=== PATIENT | male | born 1950 | race Caucasian/White ===

== ENCOUNTER 2023-02-07 12:37 | Inpatient (IN) | payer OTHER, SELFPAY ==
[2023-02-07] VITALS (15 sets, daily range): BP systolic 84–125; BP diastolic 54–88; PULSE 56–79; RESP 3–25; TEMP 36–36.9; O2SAT 95–100; BMI 32.0
--- NOTE | 2023-02-07 12:40 | ED.VIS.CHEST ---
HPI History of Present Illness Chief Complaint: Chest Pain Informant: patient and EMS Onset/Context/Timing Onset: Today Activity at onset: sudden Timing: Continuous Quality: Positive for Dull Location: Substernal Relieved By: Nothing Associated Symptoms: Positive for Nausea and Lightheadedness; Negative for Diaphoresis or Palpitations Narrative Narrative: Patient presents with chest pain, shortness of breath, and nausea that began this morning when he woke up. Patient states that he felt short of breath when he got out of bed. Patient admits to some mild pain in his chest. Patient took 1 baby aspirin at home. Patient states that he tried to walk to his living room and became very short of breath. At that point, his called EMS. On EMS arrival they did an EKG which showed ventricular tachycardia. Patient converted to a sinus rhythm spontaneously. EMS did another EKG which showed ST elevation in leads III and aVF with reciprocal changes in leads V1 through V4. Because of this, prehospital STEMI alert was called. CVD Risk Factors: Positive for - (History of coronary artery disease) PE Risk Factors: Negative for Recent Immobilization or Prior DVT or PE PFSH PFSH Medical History (Updated 02/07/23 @ 14:38 by Suyapa Ryan) Chest pain Coronary artery disease Cystic fibrosis Former smoker Myocardial infarct Allergy/AdvReac Type Severity Reaction Status Date / Time oxycodone Allergy HALLUCINATI Verified 02/07/23 12:39 ONS Surgical History (Updated 02/07/23 @ 14:38 by Suyapa Ryan) History of cholecystectomy History of coronary artery bypass graft Hx of heart artery stent Social History Smoking Status: Former smoker ROS ROS ED Constitutional Constitutional ED: Denies chills or fever(s) Cardiovascular Cardiovascular: Reports as per HPI and chest pain Respiratory/Chest Respiratory/Chest: Reports dyspnea Gastrointestinal Gastrointestinal: Reports nausea and vomiting Musculoskeletal Musculoskeletal: Denies back pain Neurologic Neurologic: Denies headache(s) EXAM Physical Exam Const Vital Signs: 02/07/23 12:51 02/07/23 12:39 Temperature 96.8 F L Temperature Source Temporal Blood Pressure 113/88 H Positive well nourished and well developed General Appearance ED: well developed and NAD HEENT Reports moist mucous membranes Neck supple and no JVD Resp normal respiratory effort and clear to auscultation bilaterally Cardio regular rate and regular rhythm GI soft to palpation, non-tender and non-distended Neuro oriented x3, CN's II-XII intact bilaterally and no sensory deficits noted Sensorium / Orientation: awake and alert Psych mental status grossly normal Heart Score History: Highly Suspicious ECG: Significant ST-Depression Age: >/= 65 years Risk Factors: >/= 3 Risk Factors or History of CAD Score: 8 MDM MDM MDM Narrative Medical decision making narrative: Prehospital STEMI alert was called. Patient was given 3 more baby aspirin prior to arrival. Patient was also given 180 mg of Brilinta and 4000 units of heparin by EMS. Patient was seen in the ambulance bay by myself as well as territory account executive, Dr. Hopson. He will take the patient directly to the Instrumentation Manager. Patient understands and is agreeable with the plan. All questions were answered. Lab Data Labs: Laboratory Results - last 24 hr 02/07/23 13:45 WBC 10.5 RBC 4.11 L Hgb 13.1 Hct 40.2 MCV 97.8 H MCH 31.9 MCHC 32.6 RDW Std Deviation 47.1 H RDW Coeff of Lisbet 13.1 Plt Count 228 MPV 9.7 Immature Gran % (Auto) 0.300 Neut % (Auto) 69.1 Lymph % (Auto) 20.1 Schuyler % (Auto) 7.9 Eos % (Auto) 2.2 Baso % (Auto) 0.4 Absolute Neuts (auto) 7.2 Absolute Lymphs (auto) 2.10 Nucleated RBC % 0 PT 15.2 H INR 1.2 APTT 249.5 H* Sodium 137 Potassium 4.0 Chloride 108 H Carbon Dioxide 25.0 Anion Gap 4 L BUN 17 Creatinine 0.94 Estim Creat Clear Calc 75.50 Est GFR (MDRD) Af Amer 102 Est GFR (MDRD) Non-Af 84 BUN/Creatinine Ratio 18.0 Glucose 114 H Calcium 8.2 L Troponin I High Sens 111 H B-Natriuretic Peptide 158.3 H EKG Initial EKG: Attestation: I personally reviewed and interpreted this EKG as follows: Interpretation: Sinus Rhythm and S-T Elevation Comments: Prehospital EKG was reviewed. On my independent interpretation, it shows normal sinus rhythm. There is ST elevation in leads III and aVF. There are reciprocal changes in leads V1 through V4. Management Discussion w/another healthcare provider: Hospitalist (Dr. Lemon) and Door Cutter (Dr. Hopson) Critical Care Time Critical Care Time: Yes Critical care time (excluding procedures): 30-74 minutes (20), Including time spent:, Discussing w/Patient &/or Family/Phlebotomist Medical Lab Assistant, Discussing w/Consultants, Arranging Admission or Transfer and Performing Direct Patient Care at Bedside Discharge Plan Dx/Rx/DC Orders Clinical Impression: Coronary artery disease, Acute ST elevation myocardial infarction (STEMI) Disposition Disposition: Acute Care Hospital [facility] Discharge Date/Time: 02/07/23 12:51
--- NOTE | 2023-02-07 12:43 | ED.RN ---
PT ARRIVED VIA [facility], STEMI WAS CALLED BRIDGE GAME DIRECTOR AT 1225. UPON EMS ARRIVAL, DR LEE AND DR SANDERS EVALUATED PT IN HALLWAY AND TAKEN STRAIGHT TO FURNACE COMBINATION ANALYST. 4,000 HEPARIN, 180 BRILINTA, AND 243 ASA GIVEN BY EMS BRIDGE GAME DIRECTOR. FOR EMS, PT WAS IN VTACH WITH A PULSE AND CONVERTED ON OWN. PT WAS NEVER TRIAGED OR PLACED IN ER ROOM. 18g IV IN LAC PLACED BY EMS.
--- NOTE | 2023-02-07 13:56 | PCM.CONS.C ---
Assessment & Plan Assessment/Plan (1) Acute ST elevation myocardial infarction (STEMI): QUALIFIERS: Involved coronary artery: unspecified coronary artery Qualified Code(s): I21.3 - ST elevation (STEMI) myocardial infarction of unspecified site PLAN: Treated with drug-eluting stent to the SVG to RCA. This is large vessel with an ectatic segment proximal to the stented segment. Due to the ectasia there appears to be some nonlinear flow in the segment which does increase the risk of stent thrombosis. We will keep the patient on aspirin, Brilinta, statin, beta-alberto and MOON inhibitor. Check 2D echo to evaluate LV function. Patient is being admitted to the CCU for further management of his ST elevation AZ. Patient did have V. tach in the setting of this AZ. We will monitor him closely on telemetry. Continue beta-alberto. (2) Coronary artery disease: QUALIFIERS: Coronary Disease-Associated Artery/Lesion type: unspecified vessel or lesion type [place] vs. transplanted heart: [place] heart Associated angina: without angina Qualified Code(s): I25.10 - Atherosclerotic heart disease of [place] coronary artery without angina pectoris HPI Consult Data Date of Consult: 02/07/23 HPI Narrative Reason for Consultation: STEMI HPI Narrative: JESSICA DOLL, is a 72 M who presents with sudden onset of shortness of breath and nausea. He asked his to call 911 and when the paramedics arrived he was in V. tach. He had not passed out and by the time they were ready to shock him he spontaneously converted to sinus rhythm. A twelve-lead EKG done at that time revealed inferior ST elevation AZ and a STEMI alert was called. Patient has history of AZ in 2005 in [facility] and had stent at that time. He had coronary angiography in 2017 and underwent three-vessel CABG which are GODFREY to LAD, SVG to OM, SVG to RCA. He underwent emergent coronary angiography today which revealed 90% stenosis in the large ectatic SVG to RCA. This was treated with drug-eluting stent placement. Patient is doing well at the end of the procedure. He is being admitted to the CCU for further management of his ST elevation AZ. [facility] Medical History (Updated 02/07/23 @ 14:[address] Muna Hopson MD) Coronary artery disease Allergy/AdvReac Type Severity Reaction Status Date / Time oxycodone Allergy HALLUCINATI Verified 02/07/23 12:39 ONS Surgical History History of coronary artery bypass graft Hx of heart artery stent Social History Smoking Status: Unknown if ever smoked Physical Exam Const alert and oriented x3 HEENT normocephalic Eyes no scleral icterus Resp normal respiratory effort Risk Stratification Risk Stratification Applicable: No Charges/Coding Visit Charges Inpatient E&M: 33588 Init Hosp L1 Objective Data Vital Signs: Vital Signs Temp BP 96.8 F L 113/88 H 02/07/23 12:39 02/07/23 12:51 Cardiology Labs/Tests Rhythm: EKG: ECHO: Stress Test: Cardiac Cath: PCI: CT Surgery: Holter monitor: EPS: PPM: CXR: Chest CT Scan:
--- NOTE | 2023-02-07 14:01 | ECHOCS_ITS ---
Reason For Study: S/P MT Procedure This was a 2D Doppler, Color Flow transthoracic echocardiogram. The study was technically difficult. Exam performed S/P heart catherization, PT in supine position for exam. Contrast injection was performed. Exam performed portable in ICU/CCU. Left Ventricle Normal LV size. Mild concentric left ventricular hypertrophy. Left ventricular systolic function is normal. The estimated ejection fraction is 53 %. Stage 1 diastolic dysfunction. Mid-Inferior: Hypokinetic. Right Ventricle Normal RV size. Normal systolic function. Mitral Valve Mild (1+) eccentric mitral valve insufficiency. Pulmonic Valve Normal pulmonic valve. Great Vessels Normal aortic root. Pericardium/Pleural No pericardial effusion. Medication Diluted definity 3.0ml given slow IV push to enhance endocardial definition. MMode/2D Measurements & Calculations LVIDd: 5.6 cm IVSd: 1.2 cm Ao root diam: 3.1 cm LVIDs: 4.4 cm LVPWd: 1.2 cm RVDd: 2.8 cm FS: 22.5 % LAV(MOD-bp): 100.7 ml LVAd ap4: 31.6 cm2 LVAd ap2: 23.3 cm2 LAV(MOD-bp) Indexed: 45.1 ml/m2 LVLd ap4: 8.1 cm LVLd ap2: 7.9 cm LAV(MOD-sp2): 87.6 ml EDV(MOD-sp4): 101.9 ml EDV(MOD-sp2): 55.1 ml LAV(MOD-sp4): 108.1 ml EDV(sp4-el): 105.2 ml EDV(sp2-el): 57.9 ml LVAs ap4: 20.9 cm2 LVAs ap2: 15.0 cm2 LVLs ap4: 7.2 cm LVLs ap2: 6.9 cm ESV(MOD-sp4): 50.1 ml ESV(MOD-sp2): 27.0 ml ESV(sp4-el): 51.4 ml ESV(sp2-el): 27.7 ml EF(MOD-sp4): 50.8 % EF(MOD-sp2): 50.9 % EF(sp4-el): 51.2 % SV(MOD-sp4): 51.8 ml SV(MOD-sp2): 28.1 ml SV(sp4-el): 53.9 ml LA A4 area: 28.4 cm2 LA dimension(2D): 5.6 cm RA A4 area: 14.9 cm2 TAPSE: 0.98 cm Time Measurements MV dec time: 0.30 sec Doppler Measurements & Calculations MV E max ang: 46.2 cm/sec Lat Peak E' Ang: 7.0 cm/sec Med Peak E' Ang: 4.2 cm/sec MV A max ang: 66.9 cm/sec E/E' lat: 6.6 E/E' med: 11.0 MV E/A: 0.69 MV V2 max: 70.0 cm/sec MV dec slope: 154.7 cm/sec2 Ao V2 max: 83.7 cm/sec MV max P.0 mmHg Ao max P.8 mmHg MV V2 mean: 43.8 cm/sec Ao V2 mean: 53.1 cm/sec MV mean P.85 mmHg Ao mean P.4 mmHg MV V2 VTI: 29.4 cm Ao V2 VTI: 17.3 cm AV (velocity ratio): 0.93 LV V1 max: 73.6 cm/sec PA V2 max: 67.2 cm/sec LV V1 max P.2 mmHg PA V2 mean: 45.9 cm/sec LV V1 mean P.3 mmHg LV V1 mean: 52.5 cm/sec LV V1 VTI: 16.2 cm ECHO/Echo Complete W/ Contrast Interpretation Summary Normal LV size. Mild concentric left ventricular hypertrophy. Left ventricular systolic function is normal. The estimated ejection fraction is 53 %. Stage 1 diastolic dysfunction. Mid-Inferior: Hypokinetic Ordering Physician: Daria Lemon Referring Physician: EVERETTE PCP Performed By: Elba Marcum RDCS, RVT
--- NOTE | 2023-02-07 14:01 | PCM.HP.STD ---
HPI - General General Date of Admission: 02/07/23 Date of Service: 02/07/23 Chief Complaint: Shortness of breath and chest pain HPI Narrative JESSICA DOLL, is a 72 M with a history of coronary artery disease with stenting and CABG in 2017 who presented to [facility] 02/07/2023 as a STEMI alert. Patient had sudden onset of shortness of breath and nausea and called EMS. Patient initially found to be in V. tach with pulse and when he was moved so he could be cardioverted he converted to normal sinus rhythm and EKG showed inferior STEMI. Patient was seen in ED by ED physician and cartridge assembling machine adjuster and taken straight to Auto Washer. He was found to have right vein graft with 90% blockage and this was stented. Discussed with cartridge assembling machine adjuster and it was recommended patient continue aspirin, Brilinta, statin and to obtain echocardiogram. Patient seen at bedside after emergent left heart cath. Patient reports he is now feeling well overall, has a little bit of tingling in his toes but no chest pain, shortness of breath, nausea. Denies any other physical complaints. Reports leading up to this event he had a nosebleed 4 to 5 days ago but has had no other recent medical problems [facility] Medical History (Updated 02/07/23 @ 14:38 by Suyapa Ryan) Chest pain Coronary artery disease Cystic fibrosis Former smoker Myocardial infarct Allergy/AdvReac Type Severity Reaction Status Date / Time oxycodone Allergy HALLUCINATI Verified 02/07/23 12:39 ONS Surgical History (Updated 02/07/23 @ 14:38 by Suyapa Ryan) History of cholecystectomy History of coronary artery bypass graft Hx of heart artery stent Social History Smoking Status: Former smoker ROS ROS Narrative General: Denies fever/chills HENT: Denies headache, denies stuffy nose, denies sore throat EYES: Denies changes in vision Resp: Denies cough, + shortness of breath resolved Cardiac: Denies chest pain GI: Denies abdominal pain, denies changes in bowel, did have nausea prior to arrival : Denies changes in urination Extremity: Denies swelling MSK: Denies weakness Neuro: Little bit of tingling in toes Heme: Denies any bleeding or bruising Skin: Denies rashes Psychiatric: No complaints voiced Vital Signs Vital Signs Vital Signs: 02/07/23 12:51 02/07/23 12:39 Temperature 96.8 F L Temperature Source Temporal Blood Pressure 113/88 H Physical Exam Narrative General: Alert, oriented, no apparent distress HEENT: Atraumatic, normocephalic Eyes: Anicteric, normal conjunctiva, extraocular movements grossly intact Neck: Supple Respiratory: Clear to auscultation bilaterally, normal respiratory effort Cardiovascular: Regular rate and rhythm GI: Soft, nontender, nondistended Extremities: No edema Musculoskeletal: Moving all extremities Neuro: No overt focal neurological deficits Skin: No rashes appreciated Psych: Cooperative Results Lab / Micro Data 02/07/23 13:45 02/07/23 13:45 Assessment & Plan Assessment/Plan (1) Acute ST elevation myocardial infarction (STEMI): QUALIFIERS: Involved coronary artery: unspecified coronary artery Qualified Code(s): I21.3 - ST elevation (STEMI) myocardial infarction of unspecified site (2) Coronary artery disease: QUALIFIERS: Associated angina: without angina Coronary Disease-Associated Artery/Lesion type: unspecified vessel or lesion type [place] vs. transplanted heart: [place] heart Qualified Code(s): I25.10 - Atherosclerotic heart disease of [place] coronary artery without angina pectoris PLAN: Plan #STEMI -Brought in emergently taken to Auto Washer, found to have right vein graft with 90% blockage and this was stented -Aspirin, Brilinta, MOON, beta-alberto, statin -Cardiology following -Echocardiogram ordered -Continue home spironolactone #History of coronary artery disease -CABG in 2017 and stenting prior to that -Aspirin, Brilinta, statin, MOON, beta-alberto as above #VT w/ pulse -In setting of STEMI -Resolved -Monitor in ICU on tele -Echo ordered #DVT ppx: Lovenox subcu Daria Lemon MD Time spent in the patient's overall evaluation,decision-making process, review of diagnostic data, adjustment of management, discussion with other providers, nursing nursing and ancillary staff involved in patient's care documentation, 56 minutes Charges/Coding Visit Charges Inpatient E&M: 95373 Init Hosp L2
--- NOTE | 2023-02-07 14:10 | EKG12_ITS ---
Test Reason : post cath stemi Blood Pressure : / mmHG Vent. Rate : 066 BPM Atrial Rate : 066 BPM P-R Int : 174 ms QRS Dur : 108 ms QT Int : 408 ms P-R-T Axes : 022 -01 -04 degrees QTc Int : 427 ms Normal sinus rhythm Possible Inferior infarct , age undetermined Abnormal ECG No previous ECGs available Confirmed by RAYO NEWMAN, CORINA ([id number]), photograph editor ROBINSON ALMAZAN ([id number]) on 02/08/2023 1:43:16 PM Referred By: Muna Hopson Confirmed By:CORINA CADE MD
[2023-02-07 14:27] LABS: Absolute Neutrophil Count 7.2 X10^3/uL (2.0-7.7); Basophil# 0.04 X10^3/uL; Basophil% 0.4 % (0-1); Eosinophil# 0.23 X10^3/uL; Eosinophils% 2.2 % (0-5); Hematocrit 40.2 % (40-54); Hemoglobin 13.1 g/dL (13.0-16.5); Lymphocyte % 20.1 % (19-41); Mean Corp Hgb Conc 32.6 g/dL (32-36); Mean Corpuscular Hgb 31.9 pg (27.0-32.0); Mean Corpuscular Volume 97.8 fL (80-94); Mean Platelet Vol. 9.7 fl (6.2-12.0); Monocyte# 0.83 X10^3/uL; Monocyte% 7.9 % (0-10); NRBC Flagged by Analyzer 0 % (0-5); Neutrophil # 7.24 X10^3/uL (2.7-7.7); Neutrophil % 69.1 % (47-70); Platelet Count 228 K/mm3 (150-450); RBC Distribution Width CV 13.1 % (11.6-14.6); RBC Distribution Width SD 47.1 fl (35.1-43.9); Red Blood Count 4.11 M/mm3 (4.6-6.2); White Blood Count 10.5 K/mm3 (4.4-11.0)
[2023-02-07 14:40] LABS: International Normalized Ratio 1.2; Prothrombin Time (Protime)PT. 15.2 SECONDS (11.7-14.9)
[2023-02-07 14:43] LABS: Anion Gap 4 (5-15); BUN 17 mg/dL (7-18); Calcium,Total 8.2 mg/dL (8.5-10.1); Chloride 108 mmol/L (98-107); Creatinine, Serum 0.94 mg/dL (0.70-1.30); EST Glomerular Filtration Rate 84 mL/min (>60); Est Glom Filt Rate - Afr Amer 102 mL/min (>60); Glucose 114 mg/dL (74-106); Sodium Level 137 mmol/L (136-145); Troponin-I HS 111 pg/mL (3.0-78.0)
[2023-02-07] MEDS: 0.9% Normal Saline (1000mL) 1,000 ML 150 ML IV (14:45)
[2023-02-07 14:46] LABS: BNP,B-Type NATRIURETIC PEPTIDE 158.3 pg/mL (0-100)
[2023-02-07 15:03] LABS: Partial Thromboplast Time 249.5 Seconds (24.1-36.2)
--- NOTE | 2023-02-07 15:37 | CHAPLAIN ---
Type of Pastoral Visit ___ Initial Visit ___ Follow-up Visit ___ On-call Visit ___ General Patient Visit ___ Spiritual Assessment ___ Family Conference ___ Bereavement _x__ Rapid Response ___ Code Blue ___ Other (describe below) Pastoral Care Referral From ___ Patient ___ Family ___ Nurse ___ Physician ___ Resin Coater ___ Scrub Wheel Operator _x__ Other (describe below) Sacrament/Intervention _x__ Active listening ___ Anointing ___ Cheondoism ___ Bereavement ___ Communion ___ Susan exploration ___ ___ Life review ___ Prayer ___ Reconciliation ___ Sacrament of Sick _x__ Supportive presence ___ Wedding ___ Other (describe below) Pastoral Comments responded to call of stemi alert; when patient arrived by squad he was transported to finishing lab technician; and sister followed the EMS team in shortly and they were escorted by this paper tube cutter to the finishing lab technician; sat with family members as others came to ask many questions; got water and coffee for the family; listened and offered to assist family as they processed this sudden change in patient's condition; later when the patient was moved to ICU, follow up was given to the family again;
[2023-02-07] MEDS: Heparin Injection (Vial) 5,000 UNIT/ML VIAL 5000 UNIT SC (20:45)
[2023-02-07] MEDS: Atorvastatin Calcium 80 MG Tablet PO (20:45)
[2023-02-07] MEDS: TICAGRELOR 90 MG TABLET PO (20:45)
[2023-02-08] VITALS (20 sets, daily range): BP systolic 79–108; BP diastolic 55–84; PULSE 52–120; RESP 12–28; TEMP 36.1–36.8; O2SAT 92–100; BMI 32.3; BMI 32.1
[2023-02-08 05:24] LABS: Hematocrit 40.9 % (40-54); Hemoglobin 13.6 g/dL (13.0-16.5); Mean Corp Hgb Conc 33.3 g/dL (32-36); Mean Corpuscular Hgb 32.7 pg (27.0-32.0); Mean Corpuscular Volume 98.3 fL (80-94); Mean Platelet Vol. 9.4 fl (6.2-12.0); Platelet Count 223 K/mm3 (150-450); RBC Distribution Width CV 13.3 % (11.6-14.6); RBC Distribution Width SD 48.4 fl (35.1-43.9); Red Blood Count 4.16 M/mm3 (4.6-6.2); White Blood Count 10.4 K/mm3 (4.4-11.0)
[2023-02-08 05:51] LABS: ALB/GLOB Ratio 0.8 RATIO (0.9-2.4); AST(SGOT) 27 U/L (15-37); Alanine Aminotransfer ALT/SGPT 37 U/L (16-61); Albumin, Serum 2.8 g/dL (3.2-5.0); Alkaline Phosphatase 43 U/L (45-117); Anion Gap 5 (5-15); BUN 14 mg/dL (7-18); BUN/Creat Ratio 16.6 RATIO (10-20); Calcium,Total 7.8 mg/dL (8.5-10.1); Chloride 111 mmol/L (98-107); Cholesterol 92 mg/dL (200); Creatinine, Serum 0.84 mg/dL (0.70-1.30); EST Glomerular Filtration Rate 96 mL/min (>60); Est Glom Filt Rate - Afr Amer 116 mL/min (>60); Estimated Creatinine Clearance 84.49 ml/min; Globulin 3.5 g/dL (2.2-4.2); Glucose 99 mg/dL (74-106); High Density Lipoprotein 37 mg/dL; Potassium 3.8 mmol/L (3.5-5.1); Protein, Total 6.3 g/dL (6.4-8.2); Sodium Level 141 mmol/L (136-145); Thyroid Stim Hormone (TSH) 4.12 uIU/mL (0.358-3.74); Triglycerides 114 mg/dL; Very Low Density Lipoprotein 23 mg/dL (5-40)
--- NOTE | 2023-02-08 06:39 | PCM.PN.HOSP ---
Reason for Visit Reason for Visit: Diagnoses ST elevation (STEMI) myocardial infarction of unspecified site (02/07/23) Atherosclerotic heart disease of [place] coronary artery without angina pectoris (02/07/23) Subjective Subjective No more tingling in toes now they have warmed up, denies any nausea, shortness of breath, chest pain Objective Data Objective Data Vital Signs: Vital Signs Temp Pulse Resp BP Pulse Ox O2 Del Method O2 Flow Rate 98.3 F 52 L 16 86/68 L 97 Room Air 2 02/08/23 04:00 02/08/23 06:00 02/08/23 06:00 02/08/23 06:00 02/08/23 06:00 02/08/23 06:00 02/08/23 00:00 FiO2 35 02/08/23 04:46 Oxygen Flow Rate (L/min) 2 Oxygen Delivery Method Room Air Weight: 102.1 kg Body Mass Index (BMI) 32.3 Intake & Output: Intake and Output for Last 24 Hours 02/06/23 02/07/23 02/08/23 23:59 23:59 23:59 Intake Total 1000 / 1000 100 / 100 Balance 1000 / 1000 100 / 100 Lab / Micro Data 02/08/23 05:00 02/08/23 05:00 Labs: Laboratory Results - last 24 hr 02/07/23 13:45: WBC 10.5, RBC 4.11 L, Hgb 13.1, Hct 40.2, MCV 97.8 H, MCH 31.9, MCHC 32.6, RDW Std Deviation 47.1 H, RDW Coeff of Lisbet 13.1, Plt Count 228, MPV 9.7, Immature Gran % (Auto) 0.300, Neut % (Auto) 69.1, Lymph % (Auto) 20.1, Ross % (Auto) 7.9, Eos % (Auto) 2.2, Baso % (Auto) 0.4, Absolute Neuts (auto) 7.2, Absolute Lymphs (auto) 2.10, Nucleated RBC % 0, PT 15.2 H, INR 1.2, APTT 249.5 H*, Sodium 137, Potassium 4.0, Chloride 108 H, Carbon Dioxide 25.0, Anion Gap 4 L, BUN 17, Creatinine 0.94, Estim Creat Clear Calc 75.50, Est GFR (MDRD) Af Amer 102, Est GFR (MDRD) Non-Af 84, BUN/Creatinine Ratio 18.0, Glucose 114 H, Calcium 8.2 L, Troponin I High Sens 111 H, B-Natriuretic Peptide 158.3 H 02/08/23 05:00: WBC 10.4, RBC 4.16 L, Hgb 13.6, Hct 40.9, MCV 98.3 H, MCH 32.7 H, MCHC 33.3, RDW Std Deviation 48.4 H, RDW Coeff of Lisbet 13.3, Plt Count 223, MPV 9.4, Sodium 141, Potassium 3.8, Chloride 111 H, Carbon Dioxide 25.0, Anion Gap 5, BUN 14, Creatinine 0.84, Estim Creat Clear Calc 84.49, Est GFR (MDRD) Af Amer 116, Est GFR (MDRD) Non-Af 96, BUN/Creatinine Ratio 16.6, Glucose 99, Calcium 7.8 L, Total Bilirubin 0.70, AST 27, ALT 37, Alkaline Phosphatase 43 L, Total Protein 6.3 L, Albumin 2.8 L, Globulin 3.5, Albumin/Globulin Ratio 0.8 L, Triglycerides 114, Cholesterol 92, LDL Cholesterol 32, VLDL Cholesterol 23, HDL Cholesterol 37 L, TSH 4.12 H Radiography Diagnostic Testing: Radiology Impression Echocardiogram 02/07/23 14:01 Interpretation Summary Normal LV size. Mild concentric left ventricular hypertrophy. Left ventricular systolic function is normal. The estimated ejection fraction is 53 %. Stage 1 diastolic dysfunction. Mid-Inferior: Hypokinetic Ordering Physician: Daria Lemon Referring Physician: EVERETTE PCP Performed By: Elba Marcum, JIA, RVT Physical Exam Narrative General: Alert, oriented, no apparent distress HEENT: Atraumatic, normocephalic Eyes: Anicteric, normal conjunctiva, extraocular movements grossly intact Neck: Supple Respiratory: Clear to auscultation bilaterally, normal respiratory effort Cardiovascular: Regular rate and rhythm GI: Soft, nontender, nondistended Extremities: No edema Musculoskeletal: Moving all extremities Neuro: No overt focal neurological deficits Skin: No rashes appreciated Psych: Cooperative Assessment & Plan Assessment/Plan (1) Acute ST elevation myocardial infarction (STEMI): QUALIFIERS: Involved coronary artery: unspecified coronary artery Qualified Code(s): I21.3 - ST elevation (STEMI) myocardial infarction of unspecified site (2) Coronary artery disease: QUALIFIERS: Associated angina: without angina Coronary Disease-Associated Artery/Lesion type: unspecified vessel or lesion type [place] vs. transplanted heart: [place] heart Qualified Code(s): I25.10 - Atherosclerotic heart disease of [place] coronary artery without angina pectoris PLAN: Plan #STEMI -Brought in emergently taken to Industrial Service Technician, found to have right vein graft with 90% blockage and this was stented -Aspirin, Brilinta, MOON, beta-alberto, statin -Cardiology following -Echocardiogram ordered -Continue home spironolactone -02/08: Echocardiogram with EF of 53% with stage I diastolic dysfunction and mid inferior hypokinesis, continue to optimize medical management, cardiology on board #History of coronary artery disease -CABG in 2017 and stenting prior to that -Aspirin, Brilinta, statin, MOON, beta-alberto as above -02/08: Need to optimize medical management, no chest pain or shortness of breath at this time #VT w/ pulse -In setting of STEMI -Resolved -Monitor in ICU on tele -Echo ordered -02/08: Being monitored on telemetry #DVT ppx: Lovenox subcu Daria Lemon MD Time spent in the patient's overall evaluation,decision-making process, review of diagnostic data, adjustment of management, discussion with other providers, nursing nursing and ancillary staff involved in patient's care documentation, 35 minutes Charges/Coding Visit Charges Inpatient E&M: 99907 Subs Hosp L2
--- NOTE | 2023-02-08 06:50 | CRPHASE1_ITS ---
Patient Communication Patient Information Former Patient:: Phase I PHII Cardiac Rehab Discussed with Patient:: Yes Guide to Cardiac Rehab Given to Patient:: Yes Cardiac Rehab Facility Choice List Given to Patient:: Yes Communication to Cardiac Rehab Choice Program [facility] CR PHII:: Communication Given to CR Blood Bank Calendar Control Clerk:: Muna Hopson Phase II Cardiac Rehab:: Yes Sessions:: 36 sessions - 3 days/wk, 12 weeks Medical/Surgical History Medical History [place]:: Yes Angina:: No CAD:: Yes Congestive Heart Failure: Diabetes:: No CVA/TIA: Cardiac Rehabilitation Info Program Information Cardiac Rehabilitation Program Information: Cardiac Rehab The cardiac rehab team at [facility] consists of highly skilled exercise physiologists, nurses, respiratory therapists and physicians working together with you. Our pur pose is to help you have a full recovery and achieve the goals you set for yourself. Over the years many of our patients have returned to activities they assumed they would never do again! We can help restore your confidence and motivation to make lifestyle changes that can have a significant impact on your health and quality of life! We can help answer questions and concerns you may have about exercise, lifestyle, medications, diet, stress and anxiety which are common following a hospitalization. WE monitor ECG and vital signs during exercise and discuss your progress with you and report to your physician(s). Cardiac Rehab is proven to help reduce readmissions, improve functional capacity and lower recurrence of problems with your heart. Our Cardiac Rehab program is Certified by the [place] [employer]-Vascular and Pulmonary [employer] (AACVPR) and Accredited by the [place] [employer] through our [facility]. You can contact us at . We invite you to call us with your questions or to get started in our program. If you have other questions or concerns be sure to ask your physician/provider during your follow-up visit. WE look forward to seeing you!
--- NOTE | 2023-02-08 06:51 | CRPH1.INSTRU ---
General Education Discussed with Patient CAD and cardiac anatomy and function:: Patient communicates acknowledgment Explanation of diagnoses and procedures:: Patient communicates acknowledgment Sign/Symptoms of MN:: Patient communicates acknowledgment Antiplatelet therapy: Patient communicates acknowledgment Proper use of NTG-SL: Patient communicates acknowledgment Emergency procedures and activation of EMS: Patient communicates acknowledgment Compliance of all prescribed medications: Patient communicates acknowledgment Smoking Recommendations Recommendations Include:: Previous smoker; encourage continued cessation Response Code Nicotine/Smoking Response Code:: Patient communicates acknowledgment Dyslipidemia Recommendations Recommendations Include:: Lipid profile provided Response Code Dyslipidemia Response Code:: Patient communicates acknowledgment Overweight/Obesity Risk Factors Patient Overweight/Obesity Risk Factors Are:: Overweight = 26-29 Response Code Overweight/Obesity:: Patient communicates acknowledgment Heart Disease Risk Factors Patient Heart Disease Risk Factors Are:: Previous cardiac event Recommendations Recommendations Include:: Educated family members of their risk Response Code Heart Disease Response Code:: Patient communicates acknowledgment Diabetes Risk Factors Patient Diabetes Risk Factors Are:: No documented hx of diabetes Metabolic Syndrome Response Code Metabolic Syndrome Response Code:: Patient communicates acknowledgment Sedentary Response Code Sedentary Response Code:: Patient communicates acknowledgment Stress Response Code Stress Response Code:: Patient communicates acknowledgment
[2023-02-08] MEDS: TICAGRELOR 90 MG TABLET PO ×2 (09:18→22:46)
[2023-02-08] MEDS: Metoprolol(XL)Succ 50 MG Tablet PO (09:18)
[2023-02-08] MEDS: Spironolactone 25 MG Tablet PO (09:18)
[2023-02-08] MEDS: Heparin Injection (Vial) 5,000 UNIT/ML VIAL 5000 UNIT SC ×2 (09:19→22:46)
[2023-02-08] MEDS: 0.9% Saline Lock 10 ML Syringe IV (09:29)
--- NOTE | 2023-02-08 10:00 | EKG12_ITS ---
Test Reason : AM EKG Blood Pressure : / mmHG Vent. Rate : 058 BPM Atrial Rate : 058 BPM P-R Int : 174 ms QRS Dur : 108 ms QT Int : 472 ms P-R-T Axes : 033 -05 002 degrees QTc Int : 463 ms Sinus bradycardia with occasional Premature ventricular complexes Inferior infarct , age undetermined Abnormal ECG When compared with ECG of 07-FEB-2023 14:10, MANUAL COMPARISON REQUIRED, DATA IS UNCONFIRMED Confirmed by RAYO NEWMAN, CORINA ([id number]), book editor ROBINSON ALMAZAN ([id number]) on 02/08/2023 1:22:24 PM Referred By: Muna Hopson Confirmed By:CORINA CADE MD
--- NOTE | 2023-02-08 10:26 | CL.I_ITS ---
Patient Name: JESSICA DOLL Study Date: 02/07/2023 Performing: Lloyd Hopson MD Ht: inches cm : 1950 Wt: 215 lbs 97.522 kg Age: 72 Gender: male BSA: PROCEDURE(S) PERFORMED DC02-(30637)LHC/COR IC16-([id number])AMI, GERDA OR PTCA, ARTERY/GRAFT, SINGLE VESSEL CLINICAL PROFILE AND CO-MORBIDITIES Indications: ACS <= 24 hrs Heart Failure: None Stress/Imaging Stress/Image Study Performed: No CAD Presentations: STEMI. Symptom onset Date/Time: 02/08/23 Time Not Available CONCLUSIONS CAD as described. Patent 3/3 bypass grafts with 90% stenosis in the SVG to RCA. Successful GERDA to SVG to RCA RECOMMENDATIONS DESCRIPTION OF PROCEDURE The patient arrived to the procedure lab. The risks and benefits of the procedure as well as a full description of our services here and lack of surgical backup were fully explained to the patient and/or their significant other prior to the catheterization. The Timeout was completed, verifying the correct patient and procedure. The patient's procedural site was prepped and draped in the usual fashion. Local anesthetic was given subcutaneously to right groin region with Lidocaine 2%. Using a modified Seldinger technique, arterial access was obtained via the right femoral artery, a 6Fr sheath was inserted.. Left Coronary Artery selective angiography was performed in multiple views using a 5 Fr. JL4 catheter. Right Coronary Artery selective angiography was then performed in multiple views using a 5 Fr. JR 4 catheter. Saphenous Vein graft to the OM 1 selective angiography was performed in multiple views using a 5 Fr. JR 4 catheter. Saphenous Vein graft to the RCA selective angiography was performed in multiple views using a 5 Fr. JR 4 catheter. Left internal mammary artery graft to the LAD selective angiography was performed in multiple views using a 5 Fr. JR 4 catheter. Left internal mammary artery graft to the LAD selective angiography was performed in multiple views using a 5 Fr. IM catheterThe images were reviewed and options discussed. A decision was then made to proceed with an Intervention, IVUS or other adjunct procedure. MP 1 Guide catheter was inserted and engaged into the SVG to the RCA. BMW Guide wire was advanced to the SVG to RCA 4 x 15 Emerge Balloon catheter was inserted. Balloon catheter was advanced across lesion in the graft to the RCA. PTCA balloon inflated at 6 atms for 7 secs. PTCA balloon inflated at 2 atms for 10 secs. PTCA balloon inflated at 2 atms for 14 secs. PTCA balloon inflated at 2 atms for 10 secs. PTCA balloon inflated at 2 atms for 12 secs. 3.5 x 20 Emerge Balloon catheter was inserted. Balloon catheter was advanced across lesion in the graft to the RCA. PTCA balloon inflated at 14 atms for 55 secs. Angiogram performed post balloon dilatation. 5 x 26 Niobrara Drug Eluting stent was inserted. Drug Eluting stent was advanced across the lesion in the graft to the RCA. Angiogram performed post stent deployment. Angiogram performed post stent deployment. Contrast was injected through the sheath and the Right Iliac and Femoral artery were assessed for possible closure device. The arterial sheath was pulled and a Perclose closure device was deployed for hemostasis. The arterial sheath was pulled and a Starclose closure device was deployed for hemostasis CORONARY ANGIOGRAPHY DOMINANCE: Right Dominant LEFT MAIN: Mild luminal irregularities LEFT ANTERIOR DESCENDING ARTERY: MID LAD: 70 % Stenosis CIRCUMFLEX ARTERY: PROX CIRC: 60 % Stenosis RIGHT CORONARY ARTERY: PROX RCA: 100 % Stenosis GRAFTS: GODFREY graft to the LAD is patent Saphenous Vein graft to the 1st OM is patent Saphenous Vein graft to the RCA has a mid lesion of 90 % INTERVENTION INFORMATION LESION SITE: Saphaenous Vein Graft to the RCA lesion location in the mid graft segment Lesion Complexity: High/C, chronic total occlusion: No, lesion at bifurcation: No, thrombus present: Yes, lesion length: 24 mm, culprit lesion: Yes, Previously treated lesion: No Pre Stenosis: 90 % Pre intervention TONJA flow: 2 Post Stenosis: 0 % Post intervention TONJA flow: 3 Lesion Devices: Medtronic 6 Fr MP1 100cm Guide Catheter Jett .014 190cm BMW [place] Straight Medtronic 5.0 x 26 DEVONTE FRONTIER GERDA COMPLICATIONS No Complications PROCEDURE MEDICATIONS Oxygen: 2 L/min via nasal cannula Heparin 5000 unit(s) IV 02/07/2023 13:22:51 Nitro 200 mcg IC 02/07/2023 13:37:22 SUMMARY OF HEMODYNAMIC DATA Time AIR REST ECG 12:57:19 AO 104/63 (80) SA 13:09:23 Signed By Lloyd Hopson MD On 02/08/2023 10:25:57 Lloyd Hopson MD
[2023-02-08] MEDS: Lisinopril 2.5 MG Tablet PO (11:18)
[2023-02-08] MEDS: Aspirin 81 MG TAB.CHEW PO (13:37)
--- NOTE | 2023-02-08 14:55 | CHAPLAIN ---
Type of Pastoral Visit ___ Initial Visit _x__ Follow-up Visit ___ On-call Visit ___ General Patient Visit ___ Spiritual Assessment ___ Family Conference ___ Bereavement ___ Rapid Response ___ Code Blue ___ Other (describe below) Pastoral Care Referral From ___ Patient ___ Family ___ Nurse ___ Physician ___ Core Setter ___ Product/Device Technologist _x__ Other (describe below) Sacrament/Intervention ___ Active listening ___ Anointing ___ Baptist ___ Bereavement ___ Communion ___ Susan exploration ___ ___ Life review ___ Prayer ___ Reconciliation ___ Sacrament of Sick _x__ Supportive presence ___ Wedding ___ Other (describe below) Pastoral Comments this was a brief follow up to stemi 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
--- NOTE | 2023-02-08 16:28 | CASEMGMT ---
RN?CM?INSPECTOR WELDED PARTS?CM?to room to meet with patient for initial transition planning/care coordination?assessment.?RN?CM?introduced self and role at [facility].? Pt voices understanding and consents to?assessment?at this time.? Pt sitting on edge of bed in no distress at this time.? Pt is A/O at this time and answers all questions appropriately.?? Care providers, pharmacy, and demographics verified/updated at this time. PCP: [facility] Specialists: manager channel and silk finisher @ [facility] in [place] Preferred [facility]acy: [facility] Insurance: [place], [facility] A/B Prescription Benefit:?, [place]. Pt provided w/Brilinta 30-day free savings card and instructed on use. Questions answered. Pt made aware to f/u with his PCP or manager channel for refills and to discuss other affordable options if refills are not affordable or if [place] does not cover them. Pt voices understanding. Living Will/HPOA:?Has both LW and HCPOA, who is his , Amy LNOK: , Amy Living Arrangements: Lives w/ in mobile home w/5 steps to enter. Pt denies difficulty w/stairs. Independent w/ADL's and manages his own medications. and pt share home mgnt tasks. Transportation:?Pt states drives self and states no transportation concerns at this time.? DME: ? Denies using any DME and denies needs.?He does have a BP machine. Pt states no need for further DME at this time.? HHC/SNF: Pt has been to either a SNF or [facility] twice in [place] in 2004 and 2018. Pt denies need for HHC and no needs identified. Pt wishes to return home and states has no concerns with going home at time of discharge.? CM?to follow for any further discharge planning/needs.? Pt voices no further concerns/needs at this time.? Advised pt to ask for?CM?if any further questions/concerns/needs arise.? Voices understanding. PLAN:??Home Dionte BSN?RN?CM
[2023-02-08] MEDS: Atorvastatin Calcium 80 MG Tablet PO (22:46)
[2023-02-09 04:50] VITALS: BP 105/69; PULSE 65; RESP 16; TEMP 36.6; O2SAT 97
[2023-02-09 07:26] VITALS: O2SAT 96
[2023-02-09 08:21] LABS: Absolute Lymphocyte Count 4.08 X10^3/uL (0.83-4.51); Absolute Neutrophil Count 6.7 X10^3/uL (2.0-7.7); Basophil# 0.05 X10^3/uL; Basophil% 0.4 % (0-1); Eosinophil# 0.44 X10^3/uL; Eosinophils% 3.6 % (0-5); Hematocrit 43.4 % (40-54); Hemoglobin 14.4 g/dL (13.0-16.5); Lymphocyte # 4.08 X10^3/ul (0.83-4.51); Lymphocyte % 33.3 % (19-41); Mean Corp Hgb Conc 33.2 g/dL (32-36); Mean Corpuscular Hgb 32.6 pg (27.0-32.0); Mean Corpuscular Volume 98.2 fL (80-94); Mean Platelet Vol. 9.7 fl (6.2-12.0); Monocyte# 0.94 X10^3/uL; Monocyte% 7.7 % (0-10); NRBC Flagged by Analyzer 0 % (0-5); Neutrophil # 6.73 X10^3/uL (2.7-7.7); Neutrophil % 54.8 % (47-70); Platelet Count 236 K/mm3 (150-450); RBC Distribution Width CV 13.3 % (11.6-14.6); RBC Distribution Width SD 48.4 fl (35.1-43.9); Red Blood Count 4.42 M/mm3 (4.6-6.2); White Blood Count 12.3 K/mm3 (4.4-11.0)
[2023-02-09 09:00] VITALS: BP 135/85; PULSE 77; RESP 16; TEMP 36.4
[2023-02-09] MEDS: Metoprolol(XL)Succ 25 MG Tablet PO (09:00)
[2023-02-09] MEDS: Spironolactone 25 MG Tablet PO (09:12)
[2023-02-09] MEDS: Aspirin 81 MG TAB.CHEW PO (09:12)
[2023-02-09] MEDS: Ezetimibe 10 MG Tablet PO (09:13)
[2023-02-09] MEDS: Heparin Injection (Vial) 5,000 UNIT/ML VIAL 5000 UNIT SC (09:13)
[2023-02-09] MEDS: TICAGRELOR 90 MG TABLET PO (09:14)
[2023-02-09] MEDS: Lisinopril 2.5 MG Tablet PO (09:15)
[2023-02-09 09:16] LABS: Anion Gap 4 (5-15); BUN 15 mg/dL (7-18); BUN/Creat Ratio 16.9 RATIO (10-20); Calcium,Total 8.6 mg/dL (8.5-10.1); Chloride 111 mmol/L (98-107); Creatinine, Serum 0.89 mg/dL (0.70-1.30); EST Glomerular Filtration Rate 90 mL/min (>60); Est Glom Filt Rate - Afr Amer 109 mL/min (>60); Estimated Creatinine Clearance 79.74 ml/min; Glucose 100 mg/dL (74-106); Potassium 3.9 mmol/L (3.5-5.1); Sodium Level 137 mmol/L (136-145)
--- NOTE | 2023-02-09 10:00 | EKG12_ITS ---
Test Reason : AM EKG Blood Pressure : / mmHG Vent. Rate : 073 BPM Atrial Rate : 073 BPM P-R Int : 172 ms QRS Dur : 106 ms QT Int : 408 ms P-R-T Axes : 030 -11 -12 degrees QTc Int : 449 ms Sinus rhythm with frequent Premature ventricular complexes Inferior infarct (cited on or before 07-FEB-2023) Abnormal ECG When compared with ECG of 08-FEB-2023 05:16, No significant change was found Confirmed by RAYO NEWMAN, CORINA ([id number]), fashion editor ROBINSON ALMAZAN ([id number]) on 02/10/2023 9:25:41 AM Referred By: Muna Hopson Confirmed By:CORINA CADE MD
--- NOTE | 2023-02-09 13:42 | DCINST_ITS ---
Discharge Instructions Diet Discharge Diet: - (DASH diet) Activity Discharge Activity: - (Unless your job involves lifting you may return to normal activities within 2 days) Follow Up Care Test Results: Test results from this visit will be discussed in further detail at your follow- up appointment, if applicable. Discharge Plan Admission Admit Date/Time: 02/07/23 14:03 Primary Reason for Your Visit: Heart attack Attending Provider: Muna Hopson Primary Care Provider: [facility] Consulting Providers: Daria Lemon; Muna Hopson Instructions Patient Instructions: Heart Attack Dc Additional Instructions / Restrictions: DISCHARGE INSTRUCTIONS PLEASE READ *Please take this with you to your next doctors appointment* -You will continue your aspirin and Brilinta will also be added to your medication regimen -Given that you will need to be discharged on Brilinta your rosuvastatin will be discontinued and you will be started on atorvastatin 80 mg to minimize medication interactions -You will need to follow-up with cardiology upon discharge, please call the office upon discharge to schedule your hospital follow-up appointment ) -Do only light and easy activities for 2 to 3 days after your stent placement, ask for help with chores and errands while you recover and have someone drive you to your appointments. -Unless your job involves lifting you may return to normal activities within 2 days -Please take your medications as prescribed, do not skip doses -Check your incisions every day for signs of infection which would include redness, swelling, leaking. It is normal to have a small bruise or bump where the catheter was placed but a bruise that is getting larger is not normal. Please tell your healthcare team about this. Please proceed to the emergency department if you have uncontrollable bleeding from the site. -It is important to eat a diet that is low in fat, salt, and cholesterol -You will be set up with cardiac rehab upon discharge, it is important that you follow-up -Okay to shower from the day after your heart catheterization but keep your incision site clean and dry. -Please call your primary care provider's office upon discharge to schedule a hospital follow up within 1 week. -For any concerning signs or symptoms please call 911 or proceed to the nearest emergency department Discharge Orders/Prescriptions Prescriptions: New Brilinta 90 mg Tablet 90 mg PO BID 30 Days Qty: 60 0RF atorvastatin 80 mg Tablet 80 mg PO QHS 30 Days Qty: 30 0RF Continued cholecalciferol (vitamin D3) 50 mcg (2,000 unit) tablet 50 mcg PO DAILY spironolactone 25 mg tablet 25 mg PO DAILY metoprolol succinate 50 mg tablet extended release 24 hr 50 mg PO DAILY ezetimibe 10 mg tablet 10 mg PO DAILY lisinopril 2.5 mg tablet 2.5 mg PO DAILY aspirin [Adult Aspirin Regimen] 81 mg tablet,delayed release (DR/EC) 81 mg PO DAILY timolol 0.5 % drops 1 drp RIGHT EYE BID Discontinued rosuvastatin 40 mg tablet 40 mg PO DAILY empagliflozin [Jardiance] 0.5 tab PO DAILY Patient Comments: patient unsure of dose. Says life insurance salesperson recently started him on med but unsure why. Referrals / Follow Up: Muna Hopson MD [Med Staff - Active Staff] - ( -Please follow-up with cardiology upon discharge. Please call their office to schedule hospital follow-up appointment upon discharge.) NOT,DEFINED [Non-Staff] - Within 1 Week ( -If you do not have a primary care physician of list of local primary care physicians can be provided for you upon discharge. Please ask for this list prior to discharge ) Disposition Disposition (needs filled in before D/C Order can be placed): Home, Self Care
--- NOTE | 2023-02-09 13:48 | DS.PCM_ITS ---
Providers Date of Admission: 02/07/23 Date of Discharge: 02/09/23 Primary Care Physician: Consultations 02/07/23 14:01 Consult: Cardiology Routine Consulting Provider: Muna Hopson Reason for Consult: stemi EMERGENT Consult: Yes MD Notified: Yes Date Notified: 02/07/23 Time Notified: 14:02 Method of Notification: ED Physician Initiated Reason For Visit: STEMI Diagnosis Discharge Diagnosis (1) Acute ST elevation myocardial infarction (STEMI): Status: Acute Code(s): I21.3 - ST elevation (STEMI) myocardial infarction of unspecified site Qualifiers: Involved coronary artery: unspecified coronary artery Qualified Code(s): I21.3 - ST elevation (STEMI) myocardial infarction of unspecified site (2) Coronary artery disease: Status: Acute Code(s): I25.10 - Atherosclerotic heart disease of [place] coronary artery without angina pectoris Qualifiers: Associated angina: without angina Coronary Disease-Associated Artery/Lesion type: unspecified vessel or lesion type [place] vs. transplanted heart: [place] heart Qualified Code(s): I25.10 - Atherosclerotic heart disease of [place] coronary artery without angina pectoris Plan #STEMI #Hx CAD #VT w/ pulse- resolved post reperfusion Medications at Discharge Home Medications cholecalciferol (vitamin D3) 50 mcg (2,000 unit) tablet 50 mcg PO DAILY supplement 02/07/23 metoprolol succinate 50 mg tablet,extended release 24 hr 50 mg PO DAILY blood pressure 02/07/23 spironolactone 25 mg tablet 25 mg PO DAILY diuretic 02/07/23 aspirin 81 mg tablet,delayed release (Adult Aspirin Regimen) 81 mg PO DAILY heart health 02/08/23 ezetimibe 10 mg tablet 10 mg PO DAILY cholesterol 02/08/23 lisinopril 2.5 mg tablet 2.5 mg PO DAILY blood pressure 02/08/23 timolol 0.5 % eye drops 1 drp RIGHT EYE BID glaucoma 02/08/23 atorvastatin 80 mg tablet 80 mg PO QHS 30 days #30 tabs 02/09/23 ticagrelor 90 mg tablet (Brilinta) 90 mg PO BID 30 days #60 tabs 02/09/23 Hospital Course Procedures Cardiac catheterization and Transthoracic echo Summary of Care Provided Minutes Spent on Discharge: 32 Hospital Course: JESSICA DOLL, is a 72 M with a history of coronary artery disease with stenting and CABG in 2017 who presented to [facility] 02/07/2023 as a STEMI alert. Patient had sudden onset of shortness of breath and nausea and called EMS. Patient initially found to be in V. tach with pulse and when he was moved so he could be cardioverted he converted to normal sinus rhythm and EKG showed inferior STEMI. Patient was seen in ED by ED physician and recorder helper gravity prospecting and taken straight to [facility]. He was found to have right vein graft with 90% blockage and this was stented. Medications adjusted and patient had echo which showed stage I diastolic dysfunction and EF of 53% with mid inferior hypokinesis. Patient did very well on medications and was discharged home 02/09/2023 in stable condition. He had no more chest pain or shortness of breath, no acute complaints on day of discharge. Discharge instructions as follows: -You will continue your aspirin and Brilinta will also be added to your medicati on regimen -Given that you will need to be discharged on Brilinta your rosuvastatin will be discontinued and you will be started on atorvastatin 80 mg to minimize medication interactions -You will need to follow-up with cardiology upon discharge, please call the office upon discharge to schedule your hospital follow-up appointment ) -Do only light and easy activities for 2 to 3 days after your stent placement, ask for help with chores and errands while you recover and have someone drive you to your appointments. -Unless your job involves lifting you may return to normal activities within 2 days -Please take your medications as prescribed, do not skip doses -Check your incisions every day for signs of infection which would include redness, swelling, leaking. It is normal to have a small bruise or bump where the catheter was placed but a bruise that is getting larger is not normal. Please tell your healthcare team about this. Please proceed to the emergency department if you have uncontrollable bleeding from the site. -It is important to eat a diet that is low in fat, salt, and cholesterol -You will be set up with cardiac rehab upon discharge, it is important that you follow-up -Okay to shower from the day after your heart catheterization but keep your incision site clean and dry. -Please call your primary care provider's office upon discharge to schedule a hospital follow up within 1 week. -For any concerning signs or symptoms please call 911 or proceed to the nearest emergency department Physical Exam Narrative General: Alert, oriented, no apparent distress HEENT: Atraumatic, normocephalic Eyes: Anicteric, normal conjunctiva, extraocular movements grossly intact Neck: Supple Respiratory: Clear to auscultation bilaterally, normal respiratory effort Cardiovascular: Regular rate and rhythm GI: Soft, nontender, nondistended Extremities: No edema Musculoskeletal: Moving all extremities Neuro: No overt focal neurological deficits Skin: No rashes appreciated Psych: Cooperative Weight / BMI Weight Weight: 101.5 kg Body Mass Index (BMI) 32.1 ABG / Lab / Microbiology Data 02/09/23 07:35 02/09/23 07:35 Laboratory: Laboratory Results - last 24 hr 02/09/23 07:35: WBC 12.3 H, RBC 4.42 L, Hgb 14.4, Hct 43.4, MCV 98.2 H, MCH 32.6 H, MCHC 33.2, RDW Std Deviation 48.4 H, RDW Coeff of Lisbet 13.3, Plt Count 236, MPV 9.7, Immature Gran % (Auto) 0.200, Neut % (Auto) 54.8, Lymph % (Auto) 33.3, [place] % (Auto) 7.7, Eos % (Auto) 3.6, Baso % (Auto) 0.4, Absolute Neuts (auto) 6.7, Absolute Lymphs (auto) 4.08, Nucleated RBC % 0, Sodium 137, Potassium 3.9, Chloride 111 H, Carbon Dioxide 22.0, Anion Gap 4 L, BUN 15, Creatinine 0.89, Estim Creat Clear Calc 79.74, Est GFR (MDRD) Af Amer 109, Est GFR (MDRD) Non-Af 90, BUN/Creatinine Ratio 16.9, Glucose 100, Calcium 8.6 D/C Instructions Discharge Diet: - (DASH diet) Meaningful Use Info Meaningful Use Diagnoses (Choose all that apply): AMI AMI/Post PCI/Angioplasty Aspirin given w/in 24hrs of arrival?: Yes ASA at discharge?: Yes Antiplatelet Therapy at Discharge:: Yes Statins at discharge?: Yes Roverto/ARB at discharge?: Yes Beta [place] at discharge?: Yes Done w/ Acute SD measure.: Yes Documented LVEF (%): 53 Discharge Plan Admission Admit Date/Time: 02/07/23 14:03 Primary Reason for Your Visit: Heart attack Attending Provider: Muna Hopson Primary Care Provider: [facility],[place] Consulting Providers: Daria Lemon; Muna Hopson Instructions Patient Instructions: Heart Attack Dc Additional Instructions / Restrictions: DISCHARGE INSTRUCTIONS PLEASE READ *Please take this with you to your next doctors appointment* -You will continue your aspirin and Brilinta will also be added to your medication regimen -Given that you will need to be discharged on Brilinta your rosuvastatin will be discontinued and you will be started on atorvastatin 80 mg to minimize medication interactions -You will need to follow-up with cardiology upon discharge, please call the office upon discharge to schedule your hospital follow-up appointment ( [phone]) -Do only light and easy activities for 2 to 3 days after your stent placement, ask for help with chores and errands while you recover and have someone drive you to your appointments. -Unless your job involves lifting you may return to normal activities within 2 days -Please take your medications as prescribed, do not skip doses -Check your incisions every day for signs of infection which would include redness, swelling, leaking. It is normal to have a small bruise or bump where the catheter was placed but a bruise that is getting larger is not normal. Please tell your healthcare team about this. Please proceed to the emergency department if you have uncontrollable bleeding from the site. -It is important to eat a diet that is low in fat, salt, and cholesterol -You will be set up with cardiac rehab upon discharge, it is important that you follow-up -Okay to shower from the day after your heart catheterization but keep your incision site clean and dry. -Please call your primary care provider's office upon discharge to schedule a hospital follow up within 1 week. -For any concerning signs or symptoms please call 911 or proceed to the nearest emergency department Discharge Orders/Prescriptions Prescriptions: New Brilinta 90 mg Tablet 90 mg PO BID 30 Days Qty: 60 0RF atorvastatin 80 mg Tablet 80 mg PO QHS 30 Days Qty: 30 0RF Continued cholecalciferol (vitamin D3) 50 mcg (2,000 unit) tablet 50 mcg PO DAILY spironolactone 25 mg tablet 25 mg PO DAILY metoprolol succinate 50 mg tablet extended release 24 hr 50 mg PO DAILY ezetimibe 10 mg tablet 10 mg PO DAILY lisinopril 2.5 mg tablet 2.5 mg PO DAILY aspirin [Adult Aspirin Regimen] 81 mg tablet,delayed release (DR/EC) 81 mg PO DAILY timolol 0.5 % drops 1 drp RIGHT EYE BID Discontinued rosuvastatin 40 mg tablet 40 mg PO DAILY empagliflozin [Jardiance] 0.5 tab PO DAILY Patient Comments: patient unsure of dose. Says recorder helper gravity prospecting recently started him on med but unsure why. Referrals / Follow Up: Muna Hopson MD [Med Staff - Active Staff] - ( -Please follow-up with cardiology upon discharge. Please call their office to schedule hospital follow-up appointment upon discharge.) NOT,DEFINED [Non-Staff] - Within 1 Week ( -If you do not have a primary care physician of list of local primary care physicians can be provided for you upon discharge. Please ask for this list p rior to discharge ) Disposition Disposition (needs filled in before D/C Order can be placed): Home, Self Care Charges/Coding Visit Charges Inpatient E&M: 13753 Disch Hosp >30min
[2023-02-09 14:40] VITALS: BP 97/65; PULSE 76; RESP 18; TEMP 36.4; O2SAT 96
--- NOTE | 2023-02-09 15:09 | CASEMGMT ---
Patient has order for discharge. Patient has order for Sunny, JOAQUIN GUSMAN called [facility], copay is $38. RN CM in to discuss needs at discharge. Patient denies need at discharge. RN CM updated patient regarding cost of Brilinta. Patient had no further questions or concerns at this time.
--- NOTE | 2023-02-09 17:05 | PHA.DC.MC.R ---
Pharmacy [facility] has performed discharge medication reconciliation and counseling for this patient. 1. ATORVASTATIN 80MG PO QHS 2. TICAGRELOR 90MG PO BID The patient's discharge medication list was reviewed for discrepancies and discrepancies were resolved. The patient was counseled on the following discharge medications and changes in medications for homegoing were reviewed. The Reason for Use, instructions for use, and potential side effects were reviewed for all new medications. The patient's questions regarding all of their medications were answered. The patient was able to verbally demonstrate an understanding of their discharge medications. Patient counseled by compounding pharmacy technicianArmando. Medications at Discharge Home Medications cholecalciferol (vitamin D3) 50 mcg (2,000 unit) tablet 50 mcg PO DAILY supplement 02/07/23 metoprolol succinate 50 mg tablet,extended release 24 hr 50 mg PO DAILY blood pressure 02/07/23 spironolactone 25 mg tablet 25 mg PO DAILY diuretic 02/07/23 aspirin 81 mg tablet,delayed release (Adult Aspirin Regimen) 81 mg PO DAILY heart health 02/08/23 ezetimibe 10 mg tablet 10 mg PO DAILY cholesterol 02/08/23 lisinopril 2.5 mg tablet 2.5 mg PO DAILY blood pressure 02/08/23 timolol 0.5 % eye drops 1 drp RIGHT EYE BID glaucoma 02/08/23 atorvastatin 80 mg tablet 80 mg PO QHS 30 days #30 tabs 02/09/23 ticagrelor 90 mg tablet (Brilinta) 90 mg PO BID 30 days #60 tabs 02/09/23
== END 2023-02-09 15:34 | disposition home or self-care (01) | DRG 322 ==
LOC: ED 12:43 → ICU 12:54 → PCU 02-09 12:09
PROVIDERS: Internal Medicine; Admitting Provider Specialist; Emergency Provider Emergency Medicine; Referring Provider Specialist; Visit Provider Specialist
DX: I21.19 ST elevation (STEMI) myocardial infarction involving other coronary artery of inferior wall (principal); I25.810 Atherosclerosis of coronary artery bypass graft(s) without angina pectoris; I47.20 Ventricular tachycardia, unspecified; I25.10 Atherosclerotic heart disease of native coronary artery without angina pectoris; I25.2 Old myocardial infarction; Z79.899 Other long term (current) drug therapy; Z87.891 Personal history of nicotine dependence; Z95.5 Presence of coronary angioplasty implant and graft; Z95.1 Presence of aortocoronary bypass graft
CPT/HCPCS: 36415; 80048; 80053; 80061; 83880; 84443; 84484; 85025; 85027; 85610; 85730; 92941; 93005; 93306; 93454; 93455; 94002; 99285; C1874; C1894; J7030; Q9957; A4216; C1725; C1760; C1769; C1887; C8929; C9606; J1327; Q9967

== ENCOUNTER 2023-03-13 20:32 | Emergency (ER) | payer OTHER, SELFPAY ==
[2023-03-13 20:35] VITALS: PULSE 84; RESP 18; TEMP 36.6; O2SAT 98; BMI 34.2
[2023-03-13 20:40] VITALS: BP 113/81; PULSE 80; RESP 33; TEMP 36.7; O2SAT 98
--- NOTE | 2023-03-13 22:25 | EX.ED.DYSGE1 ---
HPI History of Present Illness Chief Complaint: Syncope Informant: patient and spouse/S.O. Narrative Narrative: Patient is a 72-year-old male with past medical history of coronary artery disease status post stent placement roughly 1 month ago. Family states that patient was sitting on a barstool having a conversation when he seemed to pass out and fall to the ground. Patient states he was only out for roughly 2 to 3 seconds and then woke up and knew who he was and where he was at. He denies any headache or change in vision nausea or vomiting or chest pain. States there was no palpitations prior to his syncopal event either. He states he feels perfectly normal at this time but with his recent stent placement wanted evaluated and therefore comes in at this time [facility] Medical History (Updated 03/13/23 @ 23:[address] Blaine White DO) Arteriosclerotic heart disease Chest pain Coronary artery disease Cystic fibrosis Former smoker Myocardial infarct Home Medications cholecalciferol (vitamin D3) 50 mcg (2,000 unit) tablet 50 mcg PO DAILY supplement 02/07/23 [History Last Taken Unknown] metoprolol succinate 50 mg tablet,extended release 24 hr 50 mg PO DAILY blood pressure 02/07/23 [History Last Taken Unknown] spironolactone 25 mg tablet 25 mg PO DAILY diuretic 02/07/23 [History Last Taken Unknown] aspirin 81 mg tablet,delayed release (Adult Aspirin Regimen) 81 mg PO DAILY heart health 02/08/23 [History Last Taken Unknown] ezetimibe 10 mg tablet 10 mg PO DAILY cholesterol 02/08/23 [History Last Taken Unknown] lisinopril 2.5 mg tablet 2.5 mg PO DAILY blood pressure 02/08/23 [History Last Taken Unknown] timolol 0.5 % eye drops 1 drp RIGHT EYE BID glaucoma 02/08/23 [History Last Taken Unknown] ticagrelor 90 mg tablet (Brilinta) 90 mg PO BID 30 days #60 tabs 02/09/23 [Rx Last Taken Unknown] Allergy/AdvReac Type Severity Reaction Status Date / Time oxycodone Allergy HALLUCINATI Verified 03/13/23 20:39 ONS Surgical History (Updated 03/13/23 @ 23:[address] Blaine White DO) History of cholecystectomy History of coronary artery bypass graft Hx of heart artery stent Stented coronary artery (02/07/23) Social History Smoking Status: Former smoker ROS ROS ED Constitutional Constitutional ED: Denies chills or fever(s) Eyes Eyes: Denies change in vision ENT ENT ED: Denies sore throat Cardiovascular Cardiovascular: Reports other Details: Positive syncope ; Denies chest pain, palpitations or racing heartbeat Respiratory/Chest Respiratory/Chest: Denies cough or dyspnea Gastrointestinal Gastrointestinal: Denies abdominal pain, diarrhea, nausea or vomiting Genitourinary Genitourinary ED: Denies dysuria Musculoskeletal Musculoskeletal: Denies back pain, myalgias or neck pain Integumentary Denies Abrasions or rash Neurologic Neurologic: Denies headache(s), paresthesias or weakness Hematologic/Lymphatic Hematologic/Lymphatic: Reports easy bleeding and easy bruising EXAM Physical Exam Const Vital Signs: 03/13/23 20:35 03/13/23 20:40 03/13/23 20:40 Temperature 98 F 98.1 F Temperature Source Temporal Temporal Pulse Rate 84 80 Respiratory Rate 18 33 H Respiratory Effort Normal Respiratory Pattern Normal Blood Pressure 113/81 H Blood Pressure Mean 91 Pulse Ox 98 98 Oxygen Delivery Method Room Air Room Air 03/13/23 22:33 Temperature Temperature Source Pulse Rate 72 Respiratory Rate 26 H Respiratory Effort Respiratory Pattern Blood Pressure 121/86 H Blood Pressure Mean 97 Pulse Ox 98 Oxygen Delivery Method Positive well nourished and well developed General Appearance ED: well developed HEENT Reports moist mucous membranes HEENT Narrative: No tongue or cheek biting noted No signs of depressed or basilar skull fracture No hematoma noted Eyes PERRL and EOMs intact bilaterally Neck supple Neck Narrative: No bony deformity or step-off of the cervical spine no midline pain with palpation Chest Wall palpation of chest normal Chest Narrative: No bony deformity or crepitance noted Resp normal respiratory effort and clear to auscultation bilaterally Cardio regular rate and regular rhythm Rate: other Other Details: There is an occasional ectopic beat noted Radial and carotid pulses equal and symmetric GI normal to inspection, nondistended, normoactive bowel sounds, non-tender, non-distended and no masses Auscultation: normoactive bowel sounds Palpation: soft Back/Spine Back/Spine Narrative: No bony deformity or step-off of the thoracic or lumbar spine no midline pain with palpation Extremity normal to inspection Extremity Narrative: Pelvis is stable there is no shortening or external rotation of either lower extremity Patient can move all extremities without pain Neuro oriented x3, CN's II-XII intact bilaterally and no sensory deficits noted Neuro Narrative: Cranial nerves II through XII are grossly intact there are no focal neurologic deficits Pronator drift no dysmetria no truncal ataxia NIH Stroke scale score of 0 Sensorium / Orientation: alert Motor Exam: strength 5/5 throughout Psych mental status grossly normal Skin no rashes or lesions noted Skin Narrative: No abrasions or ecchymosis noted MDM MDM MDM Narrative Medical decision making narrative: Patient arrived to the ER with stable vitals and no signs of head injury. They reported a brief syncopal event and there was no reported seizure activity and this correlates with the fact that he was only out for a few seconds and new who was not where he was at when he awoke and there was no tongue or cheek biting. We discussed that his event could have been due to a cardiac dysrhythmia or potentially dehydration. Also as he is on Brilinta and fell there is a possibility of underlying traumatic brain injury. The patient was offered a head CT as well as blood work. He states that he feels perfectly normal at this time and does not want to stay in the ER any longer. The patient was able to stand and ambulate without bouts of syncope or an unsteady gait and he does not have physical exam findings for head trauma or underlying brain bleed. He understands that he needs to return if he develops palpitations chest pain fatigue or vomiting or has any further concerns but this point feels comfortable going home and family feels comfortable taking him home and therefore will be discharged at this time. History & Record Review Discussion w/independent historian: Patient Discharge Plan Triage Chief Complaint: Syncope ED Provider: Blaine White Dx/Rx/DC Orders Clinical Impression: Syncope, Stented coronary artery, Coronary artery disease Instructions: Causes of Syncope Prescriptions: No Action cholecalciferol (vitamin D3) 50 mcg (2,000 unit) tablet 50 mcg PO DAILY spironolactone 25 mg tablet 25 mg PO DAILY metoprolol succinate 50 mg tablet extended release 24 hr 50 mg PO DAILY ezetimibe 10 mg tablet 10 mg PO DAILY lisinopril 2.5 mg tablet 2.5 mg PO DAILY aspirin [Adult Aspirin Regimen] 81 mg tablet,delayed release (DR/EC) 81 mg PO DAILY timolol 0.5 % drops 1 drp RIGHT EYE BID Brilinta 90 mg Tablet 90 mg PO BID 30 Days Qty: 60 0RF [facility]] - Activity Restrictions/Additional Instructions: Based on the fact you take Brilinta and did fall if you develop bouts of nausea and vomiting or your family notices changes in mental status please return for repeat evaluation and head CT. We feel that your heart is racing and skipping beats or you have any further concerns please return for repeat evaluation Disposition Disposition: Home, Self Care Discharge Date/Time: 03/13/23 22:34
[2023-03-13 22:33] VITALS: BP 121/86; PULSE 72; RESP 26; O2SAT 98
== END 2023-03-13 22:34 | disposition home or self-care (01) ==
PROVIDERS: Emergency Provider Emergency Medicine; Visit Provider Emergency Medicine
DX: R55 Syncope and collapse (principal); I25.10 Atherosclerotic heart disease of native coronary artery without angina pectoris; Z79.82 Long term (current) use of aspirin; Z79.02 Long term (current) use of antithrombotics/antiplatelets; Z79.899 Other long term (current) drug therapy; Z87.891 Personal history of nicotine dependence; Z95.5 Presence of coronary angioplasty implant and graft
CPT/HCPCS: 99282; A4216

== ENCOUNTER → 2023-08-25 | Outpatient (CLI) | payer OTHER, SELFPAY ==
--- NOTE | 2023-08-25 12:31 | CT_ITS ---
STUDY: CTA CHEST REASON FOR EXAM: Male, 72 years old. THORACIC ANEURYSM RADIATION DOSAGE (If Supplied By Facility): CTDIvol = ( 13.85 ) mGy, DLP = ( 563.74 ) mGycm TECHNIQUE: The examination was performed with the intravenous administration of IV 100mL Isovue-370. Post-processing of the angiographic images was performed, with multiplanar reformation and 3D reconstruction. Individualized dose optimization techniques were used for this CT. COMPARISON: None. FINDINGS: Normal enhancement of the main pulmonary artery and right and left pulmonary arteries. Normal enhancement of the bilateral peripheral pulmonary arteries. There is no demonstrated pulmonary embolism. Normal thoracic aorta and visualized great vessels. There is no demonstrated aortic dissection. Sternal cerclage wires and vascular clips are present from a prior sternotomy and coronary artery bypass graft procedure (CABG). There are calcifications of the coronary arteries. Normal mediastinum. Normal hilar regions. Normal visualized trachea and bronchi. Hyperinflation. There is a 1 cm noncalcified nodule in the right middle lobe adjacent to the minor fissure. A 6 month follow-up examination is recommended. Diffuse emphysematous changes with multiple bulla worse in the right upper lobe as well as subpleural blebs. Calcified granuloma in the anterior aspect of the right middle lobe. Interstitial scarring and honeycombing in the lower lobes. Normal pleura. Normal chest wall structures. There are degenerative changes of thoracic spine. Prior cholecystectomy. CT/CTA Chest W/WO Contrast IMPRESSION: Hyperinflation and emphysematous changes as well as scarring more prominent in the lower lobes. No evidence of pulmonary embolism. 1 cm noncalcified nodule in the right middle lobe adjacent to the minor fissure. A 6 month follow-up CT scan is recommended. Electronically Signed: Lawrence Duran MD at 15:23 EDT ,
== END | disposition home or self-care (01) ==
LOC: CT 12:29
PROVIDERS: Referring Provider Family Medicine; Visit Provider Family Medicine
DX: I71.20 Thoracic aortic aneurysm, without rupture, unspecified (principal)
CPT/HCPCS: 71275; Q9967